=== PATIENT | male | born 1975 | race Caucasian/White ===

== ENCOUNTER → 2017-10-18 13:26 | Outpatient (REF) | payer SELFPAY | LOC: OM 13:26 | PROVIDERS: PCP Nurse Practitioner Family; Visit Provider Nurse Practitioner Family | DX: Z02.79 Encounter for issue of other medical certificate (principal) ==

== ENCOUNTER 2019-12-15 08:47 | Emergency (ER) | payer MEDICAID, SELFPAY ==
[2019-12-15 08:52] VITALS: BP 118/73; PULSE 67; RESP 18; TEMP 37.3; O2SAT 98
--- NOTE | 2019-12-15 09:12 | W.ED.GENAD ---
Discharge Plan Disposition Patient Disposition: HOME Condition: Improving Discharge Details Clinical Impression: Laceration of hand, left Primary Care Provider: Radha Manley ED Provider: Kennedy Vargas Home Meds and New Rx's Prescriptions: No Action No Known Home Meds RF: 0 Discharge Instructions Instructions: Laceration (ED) Additional Instructions: Please call your providers office on Tuesday to ensure that your tetanus has been updated within the last 5 years. Return in 7 to 9 days time for removal of stitches. Leave Band-Aid in place for 48 hours, then begin daily gentle cleanse with soap and water, pat dry and replace dressing. Return if you develop a fever, foul-smelling discharge from the wound, or any other acute concerns. Medical Decision Making 44-year-old right-handed male cut the base of his left thumb with the edge of a tape measure this morning. No motor or sensory dysfunction. Believes his tetanus is up-to-date. Patient was consented verbally, anesthetized, irrigated liberally and wound explored in a bloodless field without evidence of foreign body. Repaired with 3 interrupted 4-0 nylon sutures with good wound edge apposition.. Dressed at the bedside. Discussed with him home management. He is stable for discharge to home. HPI General Mode of arrival: ambulatory. Date/Time Provider Initiated Documentation: 12/15/19 08:49. Limitations to Documentation: no limitations. Information obtained by: patient. History of Present Illness 44 year old M presents to the emergency department with the chief complaint of Left hand laceration, described as mild, Quality is described as dull, and is localized to the left and upper extremity. Patient reports no radiation. Patient started experiencing this minute(s) and it has been constant. No relieving factors improve symptom(s), No exacerbating factors reported . Patient did receive the following treatments prior to arrival, none Related Data Home Medications Medication Instructions Recorded Confirmed Unknown [No Known Home Meds] 12/15/19 12/15/19 Allergies Allergy/AdvReac Type Severity Reaction Status Date / Time No Known Allergies Allergy Unverified 12/15/19 08:55 General Stated Complaint: Laceration ADIA: 4 Review of Systems Narrative: Believes tetanus is up-to-date. No other complaint. ON LICENSE OF [facility] Social History Smoking/Tobacco Use Status: Never Alcohol Intake: current Alcohol Intake frequency: holidays/special occasions only Substance use type: does not use Do you feel safe at home: Yes Do you feel safe in your relationship?: Yes Exam Narrative Exam Narrative: GEN: awake, alert, oriented 3. Pleasant, well groomed, interactive. HEAD: Normocephalic, atraumatic CHEST/RESP: No respiratory distress EXT: Full ROM, no edema, no rash. Left hand proximal volar thumb with 1 cm laceration through full depth of the dermis. Full range of motion, normal sensory exam. Neuro: Grossly normal neurologic exam, conversant, interactive. Psych: Speech fluent, thoughts congruent, affect normal Course Vital Signs Vital signs: Vital Signs Temperature 37.3 C 12/15/19 08:52 Pulse 67 12/15/19 08:52 Respiratory Rate 18 12/15/19 08:52 Blood Pressure 118/73 12/15/19 08:52 Pulse Oximetry 98 12/15/19 08:52 Temperature 37.3 C 12/15/19 08:52 Temperature Source Skin 12/15/19 08:52 Pulse 67 12/15/19 08:52 Respiratory Rate 18 12/15/19 08:52 Respiratory Effort Non-Labored 12/15/19 08:55 Blood Pressure 118/73 12/15/19 08:52 Blood Pressure Position Sitting 12/15/19 08:52 Pulse Oximetry 98 12/15/19 08:52 Oxygen Delivery Method Room Air 12/15/19 08:52 Oxygen Flow Rate 0 12/15/19 08:52 Pain Level 2 12/15/19 08:52 Procedures Laceration Laceration 1: Site: hand Side (If applicable): left Size (cm): 1 Description: linear Depth: simple, single layer Local Anesthetic: Lidocaine 1% Amount of anesthesia used (mL): 1 Pre-repair: wound explored, irrigated extensively and deep structures intact Skin layer closed with: nylon Size (cm): 4-0 Number of sutures: 3 Technique: simple, interrupted
== END 2019-12-15 09:25 | disposition home or self-care (01) ==
PROVIDERS: Emergency Provider Emergency Medicine; PCP Nurse Practitioner Family
DX: S61.012A Laceration without foreign body of left thumb without damage to nail, initial encounter (principal); W26.8XXA Contact with other sharp object(s), not elsewhere classified, initial encounter
CPT/HCPCS: 12001

== ENCOUNTER 2019-12-25 17:01 | Emergency (ER) | payer MEDICAID, SELFPAY ==
--- NOTE | 2019-12-25 17:05 | ED.GENADUL_ITS ---
Discharge Plan Disposition Patient Disposition: HOME Condition: Good Discharge Details Clinical Impression: Encounter for removal of sutures Primary Care Provider: Carri Morillo ED Provider: Camryn Beckman Home Meds and New Rx's Prescriptions: No Action No Known Home Meds RF: 0 Discharge Instructions Instructions: Stitches Removal (ED) Additional Instructions: Wound appears to be healing well. Please continue to monitor for side effect including redness, warmth, drainage, increased pain, fever/chills. If you develop this or other new/worsening symptoms please seek care urgently once again. Referrals: Carri Morillo [Primary Care Provider] - Discharge Data Discharge Date/Time-TO BE ENTERED AT DEPARTURE: 12/25/19 17:22 Medical Decision Making Patient is here for suture removal today. He has #3 simple interrupted stitches in the webspace of the left thumb. Patient be healing very well no evidence of infection. Stitches will be removed by nursing staff. Customary return precautions were discussed. Was discussed continued care of the wound and how to advance activities. All questions concerns were addressed using treatment as planned. HPI General Mode of arrival: ambulatory . Date/Time Provider Initiated Documentation: 12/25/19 17:05 . Limitations to Documentation: no limitations . Information obtained by: patient and RN notes reviewed . History of Present Illness 44 year old M presents to the emergency department with the chief complaint of suture removal, described as mild, with intensity rated at 1. and is localized to the left and upper extremity. Patient reports no radiation. Patient started experiencing this day(s) (10) and it has been now resolved. No relieving factors improve symptom(s), No exacerbating factors reported . Patient notes no other symptoms.. Patient did receive the following treatments prior to arrival, none Related Data Home Medications Medication Instructions Recorded Confirmed Unknown [No Known Home Meds] 12/15/19 12/15/19 Allergies Allergy/AdvReac Type Severity Reaction Status Date / Time No Known Allergies Allergy Unverified 12/15/19 08:55 General ADIA: 4 Review of Systems Constitutional Constitutional: Reports as per HPI, Denies chills, Denies fever(s) and Denies weakness Musculoskeletal Musculoskeletal: Reports as per HPI and Denies tingling Integumentary/Breasts Skin/Breast: Reports as per HPI Neurologic Neurologic: Denies sensory deficit, Denies tingling and Denies weakness PFS Social History Smoking/Tobacco Use Status: Never Alcohol Intake: current Alcohol Intake frequency: holidays/special occasions only Substance use type: does not use Do you feel safe at home: Yes Do you feel safe in your relationship?: Yes Exam Const General: cooperative, healthy appearing, comfortable, no acute distress and well developed Nutritional Appearance: average body habitus and well nourished Orientation: alert and awake Resp Effort & Inspection: normal respiratory effort, able to speak in complete sentences and no respiratory distress Cardio Rate: regular rate Rhythm: regular rhythm Skin Trauma: laceration (appears well healed with no evidence of infection) Neuro General: patient alert and patient awake Cognition: normal cognition Speech: speech normal Gait: normal gait Motor: muscle tone normal throughout Extrem Right upper extremity: normal to inspection, full ROM and normal capillary refill Psych Appearance: grossly normal and well kempt Mental Status: mental status grossly normal Speech and Movement: speech and movement normal
[2019-12-25 17:06] VITALS: BP 111/74; PULSE 71; RESP 17; TEMP 36.3
== END 2019-12-25 17:22 | disposition home or self-care (01) ==
LOC: ER 17:17
PROVIDERS: Emergency Provider Physician Assistant; PCP Nurse Practitioner Family
DX: S61.012D Laceration without foreign body of left thumb without damage to nail, subsequent encounter (principal); W26.8XXD Contact with other sharp object(s), not elsewhere classified, subsequent encounter; Z48.02 Encounter for removal of sutures

== ENCOUNTER 2021-05-12 17:59 | Outpatient (CLI) | payer MEDICAID, SELFPAY ==
--- NOTE | 2021-05-12 | DI.RAD_ITS ---
Exam(s) XR RIBS RT W PA LAT CHEST EXAM: XR RIBS RT W PA LAT CHEST CLINICAL HISTORY: CHEST WALL PAIN TECHNIQUE: COMPARISON: CR THORACIC SPINE from 01/17/2017 FINDINGS: PA and lateral chest and 4 additional views of the ribs were obtained. There is no focal rib abnorma lity identified. No pleural effusion or pneumothorax. The lungs are clear. Cardiac size is within normal limits. IMPRESSION: Negative examination of the chest and ribs. RADIATION DOSE DELIVERED: Total DLP
--- NOTE | 2021-05-12 18:49 | DI.VRAD_ITS ---
PROCEDURE INFORMATION: Exam: XR Right Ribs Exam date and time: 05/12/2021 18:14 Age: 45 years old Clinical indication: Other: Chest wall pain TECHNIQUE: Imaging protocol: XR Right ribs. Views: 2 views. COMPARISON: CR THORACIC SPINE 01/17/2017 16:05 FINDINGS: Bones/joints: No displaced rib fractures are seen with attention to the right-sided ribs. Soft tissues: Normal. IMPRESSION: No acute bony pathology. PROCEDURE INFORMATION: Exam: XR Chest Exam date and time: 05/12/2021 18:14 Age: 45 years old Clinical indication: Other: Chest wall pain TECHNIQUE: Imaging protocol: XR of the chest. Views: 2 views. COMPARISON: CR THORACIC SPINE 01/17/2017 16:05 FINDINGS: Lungs: No consolidation. Pleural spaces: No pleural effusion. No pneumothorax. Heart/Mediastinum: No cardiomegaly. Bones/joints: No acute fracture. IMPRESSION: No acute cardiopulmonary pathology. Dictated and Authenticated by: Devi English MD. Ordering:DONALDO Le MD
== END 2021-05-12 18:19 ==
PROVIDERS: PCP Nurse Practitioner Family; Visit Provider Nurse Practitioner Family
DX: R07.89 Other chest pain (principal)
CPT/HCPCS: 71046; 71100

== ENCOUNTER 2021-10-15 15:19 | Outpatient (REF) | payer MEDICAID, SELFPAY ==
[2021-10-15 15:36] LABS: Anion Gap 8.9 mmol/L (3-11); BUN 15 mg/dL (7-18); CO2 29.1 mmol/L (21.0-32.0); CREATININE 1.2 mg/dL (0.70-1.30); Calcium 9.8 mg/dL (8.5-10.1); Calculated LDL 130 mg/dL (<100); Chloride 105 mmol/L (98-107); Cholesterol 205 mg/dL (<200); Glucose 97 mg/dL (74-106); HDL Cholesterol 59 mg/dL (40-60); Potassium 4.8 mmol/L (3.5-5.1); Sodium 143 mmol/L (136-145); Triglyceride 81 mg/dL (<150)
== END 2021-10-15 15:20 | disposition home or self-care (01) ==
LOC: NCHCN 15:19
PROVIDERS: PCP Nurse Practitioner Family; Visit Provider Nurse Practitioner Family
DX: Z13.220 Encounter for screening for lipoid disorders (principal); Z00.00 Encounter for general adult medical examination without abnormal findings
CPT/HCPCS: 80048; 80061

== ENCOUNTER 2021-11-28 16:40 | Emergency (ER) | payer MEDICAID, SELFPAY ==
[2021-11-28 16:42] VITALS: BP 116/70; PULSE 83; RESP 18; TEMP 36.7; O2SAT 98
--- NOTE | 2021-11-28 16:45 | DI.RAD_ITS ---
Exam(s) XR CHEST 2V PA LATERAL EXAM: XR CHEST 2V PA LATERAL CLINICAL HISTORY: trauma rt sided TECHNIQUE: 2D digital imaging was performed. COMPARISON: CR,XR XR RIBS RT W PA LAT CHEST from 05/12/2021 FINDINGS: The heart is not enlarged. The lungs are clear and well expanded. No pleural effusion seen. Mediastin al contours appear intact. IMPRESSION: Normal chest. RADIATION DOSE DELIVERED: Total DLP
--- NOTE | 2021-11-28 16:52 | ED.GENADUL_ITS ---
Discharge Plan Disposition Patient Disposition: HOME Discharge Details Chief Complaint: Chest/Rib Clinical Impression: Rib contusion Primary Care Provider: Carri Morillo ED Provider: Isidro Ortiz Home Meds and New Rx's Prescriptions: New lidocaine [Lidoderm] 5 % adhesive patch,medicated 1 patch topical DAILY Qty: 15 0RF Rx Instructions: leave on most painful area for up to 12 hrs No Action ibuprofen 800 mg Tablet 800 mg PO Q8H acetaminophen [Acetaminophen Extra Strength] 500 mg Tablet 100 mg PO QID PRN cyclobenzaprine 10 mg tablet 10 mg PO HS PRNQty: 10 0RF Discharge Instructions Instructions: Rib Contusion (ED) Additional Instructions: Please use 1 lidocaine patch per day as instructed. You may take Tylenol 650 mg every 6 hours for the pain. You may also take ibuprofen 400 mg every 8 hours for the pain.. Bear in mind that ribs take a long time to heal and you will probably be feeling some pain for the next 4 to 6 weeks. Regarding the mild elevation of your liver function tests, please follow-up with your primary care doctor for repeat testing in approximately 4 to 6 weeks. Discharge Data Discharge Date/Time-TO BE ENTERED AT DEPARTURE: 11/28/21 20:02 Medical Decision Making Patient with isolated right-sided chest wall trauma. Chest x-ray does not reveal any abnormalities. I do not see any pneumothorax or any fractures. Patient diagnosed with contusion of the right chest wall. He will be treated with lidocaine patches Tylenol and Motrin. 7:[address] scan of the abdomen pelvis was read as negative from a intra abdominal pelvic perspective. He was diagnosed on CAT scan with fractures of the right 10th and 11th costal cartilages. This correlates clinically. These results were discussed with the patient. He is aware that he will be in pain for the next 4 to 6 weeks. He will be sent home with some lidocaine patches for the next week. He will be taking Tylenol Motrin for the pain. From the elevation of the LFTs perspective, he was counseled on follow-up with his PCP for repeat testing in 4 to 6 weeks. HPI General Date/Time Provider Initiated Documentation: 11/28/21 16:52 . HPI Narrative: 38-year-old gentleman is coming from this referral letter with the letter sta rted. He was approximately 4 to 6 feet from the ground fell flat and he fell onto the landing. He believes that he hit the right side of his chest on the ladder because he is having right anterior chest wall pain. Pain is worse with movement and deep breathing. If he is sitting at rest he is not short of breath and has a mild discomfort. No head trauma no neck trauma. No abdominal pain. No back pain. No extremity pain. No skin lesions Acute isolated injury to the right side of his chest. This occurred 3 hours ago. Has not taken anything for the pain Related Data Home Medications Medication Instructions Recorded Confirmed lidocaine 5 % topical patch 1 patch topical DAILY #15 ea 11/29/21 12/06/21 (Lidoderm) acetaminophen 500 mg tablet 100 mg PO QID PRN 12/06/21 12/06/21 (Acetaminophen Extra Strength) cyclobenzaprine 10 mg tablet 10 mg PO HS PRN #10 tabs 12/06/21 ibuprofen 800 mg tablet 800 mg PO Q8H 12/06/21 12/06/21 Previous Rx's Medication Instructions Recorded lidocaine 5 % topical patch 1 patch topical DAILY #15 ea 11/29/21 (Lidoderm) cyclobenzaprine 10 mg tablet 10 mg PO HS PRN #10 tabs 12/06/21 Allergies Allergy/AdvReac Type Severity Reaction Status Date / Time No Known Allergies Allergy Unverified 12/06/21 17:58 General Stated Complaint: Chest/Rib ADIA: 3 Review of Systems Narrative: Constitutional is been negative for fever chills, negative for malaise, negative for fatigue. Eyes: No visual changes, no tearing ENT: negative Cardiovascular no chest pain, no shortness of breath with exertion, no palpitations, no lightheadedness Respiratory: No shortness of breath, no cough GI: No abdominal pain, no diarrhea, no nausea, no vomiting : No dysuria, no frequency, no hematuria MSK: No myalgias, no arthralgias, see HPI Skin: No rash Neurological: No headaches, no focal weakness, no paresthesias, no dizziness Psych: No anxiety Endo: No weight gain no weight loss Hematology/lymph: no easy bleeding, not on blood thinners PFSH All Active Problems (Updated 12/29/21 @ 00:09 by GIRMA LEWIS) Chest wall pain (Acute) Medical History (Updated 12/29/21 @ 00:09 by GIRMA LEWIS) Chronic low back pain Left knee pain Surgical History (Updated 12/25/21 @ 12:36 by Renay Sanders RN) History of vasectomy Social History Smoking/Tobacco Use Status: Never Smoking risk assessment performed?: Yes Alcohol Intake: current Alcohol Intake frequency: holidays/special occasions only Drug use: Never Substance use type: does not use Do you feel safe at home: Yes Do you feel safe in your relationship?: Yes Exam Narrative Exam Narrative: General: A,A Ox3, Calm, no apparent distress, well developed, pleasant and cooperative Head Size/Shape: normocephalic, atraumatic Eyes Pupils: PERRLA Extraocular Mobility: intact and symmetrical Conjunctiva: non-injected, anicteric, no discharge Ears, Nose, Throat Nares: patent bilaterally Oral Cavity: moist Neck: no masses, no crepitus, negative NEXUS Respiratory Respiratory Effort: no dyspnea Auscultation: clear to auscultation bilaterally, normal breath sounds, no wheezing, no rales/crackles , positive splinting, he does have tenderness to palpation pf the rt anterior chest wall. no crepitus Cardiovascular Heart Auscultation: regular rate and rhythm, normal S1, normal S2, no murmurs, no rubs, no gallops, Pulse Quality: +2 equal bilaterally, location(s) radial Abdomen Inspection and Palpation: soft, non-tender, non-distended, no hepatosplenomegaly Musculoskeletal System Joints, Bones, and Muscles: no deformities Extremities: warm and well-perfused, no cyanosis, capillary refill <2 seconds Skin Skin Inspection: no rash, no lesions, no bruising Neurological Motor: normal tone, normal strength, moving all extremities equally Psychiatric: good insight, good judgement, normal mood and affect Course 1804 patient chest x-ray was read as negative by me. Do not appreciate any contusion of the lung nor do I appreciate any rib fracture. Unfortunately his LFTs returned mildly elevated in the setting of trauma and the person that does not drink and does not take any medication that would explain the elevation of LFTs, a CAT scan of the abdomen pelvis with contrast was ordered Vital Signs Vital signs: Vital Signs Temperature 36.7 C 11/28/21 16:42 Pulse 83 11/28/21 16:42 Respiratory Rate 18 11/28/21 16:42 Blood Pressure 116/70 11/28/21 16:42 Pulse Oximetry 98 11/28/21 16:42 Temperature 36.7 C 11/28/21 16:42 Pulse 83 11/28/21 16:42 Respiratory Rate 18 11/28/21 16:42 Respiratory Effort Non-Labored 11/28/21 16:47 Blood Pressure 116/70 11/28/21 16:42 Blood Pressure Position Sitting 11/28/21 16:42 Pulse Oximetry 98 11/28/21 16:42 Oxygen Delivery Method Room Air 11/28/21 16:42 Oxygen Flow Rate 0 11/28/21 16:42 Pain Level 6 11/28/21 16:42
[2021-11-28 17:15] LABS: Abs Immature Grans 0.02 10^3/uL (0.0-0.06); Absolute Basophil Count 0.05 10^3/uL (0.0-0.2); Absolute Eosinophil Count 0.06 10^3/uL (0.0-0.7); Absolute Lymphocyte Count 1.31 10^3/uL (1.2-3.4); Absolute Monocyte Count 0.62 10^3/uL (0.1-0.8); Absolute Neutrophil Count 7.28 10^3/uL (1.2-6.7); Basophils % 0.5; Eosinophils % 0.6; HGB 14.9 g/dL (13.5-17.5); Immature Grans % 0.2; MCHC 34.7 % (32.0-36.0); MCV 90 fL (80-95); MPV 11.5 fL (8.0-11.0); Monocytes % 6.6; Neutrophils % 78.1; Platelet Count 148 10^3/uL (130-400); RDW 12.2 % (11.8-14.1); RDW-SD 40.1 fL; WBC 9.34 10^3/uL (4.4-10.8)
--- NOTE | 2021-11-28 17:58 | DI.VRAD_ITS ---
PROCEDURE INFORMATION: Exam: XR Chest Exam date and time: 11/28/2021 5:40 PM Age: 46 years old Clinical indication: Injury or trauma; Fall; Blunt trauma (contusions or hematomas); Patient HX: Trauma RT sided TECHNIQUE: Imaging protocol: Radiologic exam of the chest. Views: 2 views. COMPARISON: CR XR RIBS RT W PA LAT CHEST 05/12/2021 6:08 PM FINDINGS: Lungs: Mild chronic interstitial prominence. No consolidation. Pleural spaces: No pleural effusion. No pneumothorax. Heart/Mediastinum: Mildly tortuous aorta. No cardiomegaly. Bones/joints: Unremarkable. IMPRESSION: No acute findings. Dictated and Authenticated by: Dani Lerma MD. Ordering:AMBIKA Felix MD
[2021-11-28 17:59] LABS: ALT 90 U/L (16-63); AST 55 U/L (15-37); Albumin 4.2 g/dL (3.4-5.0); Alkaline Phosphatase 103 U/L (46-116); Anion Gap 9.8 mmol/L (3-11); BUN 12 mg/dL (7-18); Bilirubin, Total 0.3 mg/dL (0.2-1.0); CO2 26.2 mmol/L (21.0-32.0); CREATININE 1.1 mg/dL (0.70-1.30); Calcium 9.2 mg/dL (8.5-10.1); Chloride 105 mmol/L (98-107); Estimated GFR 82.81 (mL/min/1.73m2); Glucose 109 mg/dL (74-106); Potassium 4.1 mmol/L (3.5-5.1); Sodium 141 mmol/L (136-145); Total Protein 7.2 g/dL (6.4-8.2)
--- NOTE | 2021-11-28 18:00 | DI.CT_ITS ---
Exam(s) CT ABDOMEN PELVIS W EXAM: CT ABDOMEN PELVIS W CLINICAL HISTORY: trauma rt side chest wall, mild elevation LFTs TECHNIQUE: COMPARISON: No exams were available for comparison FINDINGS: CT examination of the abdomen and pelvis was performed with bolus infusion of 100 cc of Omnipaque 350 . Images obtained through the lung bases are unremarkable. There are probable nondisplaced fractures costal cartilages 10 and 11 on the right. The liver appears normal with no evidence of a focal mass. Spleen is unremarkable in appearance.. Gallbladder and bile ducts are unremarkable. Pancreas is unremarkable in appearance. Adrenals appear normal bilaterally. Kidneys appear normal with no evidence of renal mass, hydronephrosis, or nephrolithiasis. Unremarkab le bladder. There is no evidence of abdominal or pelvic adenopathy. Abdominal aorta is of normal diameter and no abnormality is seen involving major visceral branches.. Appendix is normal. No evidence diverticulitis or bowel obstruction. No significant abdominal wall hernia seen. Impression: A probable nondisplaced fractures costal cartilage right 10th and 11th ribs, please correlate clinica lly. Otherwise negative CT examination of the abdomen and pelvis. RADIATION DOSE DELIVERED: 1,086.3mGy.cm Total DLP 1,086.3mGy.cm Total DLP !Error CTDIvol DATA REPOSITORY: All CT scans at this facility are submitted to the National Radiology Data Registry (NRDR) Dose Index Registry (DIR) with the [employer] ([employer]). RADIATION OPTIMIZATION: All CT scans at this facility use at least one of these dose optimization te chniques: automated exposure control; mA and/or kV adjustment per patient size (includes targeted exa ms where dose is matched to clinical indication); or iterative reconstruction.
[2021-11-28] MEDS: Omnipaque 350 MG/ML 100 ML BTL IJ (19:13)
[2021-11-28] MEDS: Normal Saline 1,000 ML 1000 ML IV (19:20)
[2021-11-28] MEDS: Ibuprofen 400 MG TAB PO (19:20)
[2021-11-28] MEDS: Lidocaine 5% Patch 1 PATCH TP (19:21)
--- NOTE | 2021-11-28 19:34 | DI.VRAD_ITS ---
PROCEDURE INFORMATION: Exam: CT Abdomen And Pelvis With Contrast Exam date and time: 11/28/2021 7:12 PM Age: 46 years old Clinical indication: Injury or trauma; Fall; Blunt; Ruq; Patient HX: Trauma RT side chest wall, mild elevation lfts TECHNIQUE: Imaging protocol: Computed tomography of the abdomen and pelvis with contrast. COMPARISON: CR XR CHEST 2V PA LATERAL 11/28/2021 5:40 PM FINDINGS: Question fractures of the right 10th and 11th costal cartilages Liver: Fatty infiltration. No mass. Gallbladder and bile ducts: Normal. No calcified stones. No ductal dilation. Pancreas: Normal. No ductal dilation. Spleen: Normal. No splenomegaly. Adrenal glands: Normal. No mass. Kidneys and ureters: Normal. No hydronephrosis. Stomach and bowel: Unremarkable. No obstruction. No mucosal thickening. Appendix: No evidence of appendicitis. Intraperitoneal space: Unremarkable. No free air. No significant fluid collection. Vasculature: Unremarkable. No abdominal aortic aneurysm. Lymph nodes: Unremarkable. No enlarged lymph nodes. Urinary bladder: Unremarkable as visualized. Reproductive: Unremarkable as visualized. Bones/joints: Unremarkable. No acute fracture. Soft tissues: Unremarkable. IMPRESSION: Question fractures of the right 10th and 11th costal cartilages. Correlate clinically No solid organ injury observed Dictated and Authenticated by: Dani Lerma MD. Ordering:AMBIKA Felix MD
--- NOTE | 2021-11-29 13:30 | NUR.NOTE ---
called about getting prescription transferred to a pharmacy open today. call given to Rosa Singh Note:
== END 2021-11-28 20:02 | disposition home or self-care (01) ==
PROVIDERS: Emergency Provider Emergency Medicine; PCP Nurse Practitioner Family
DX: S22.41XA Multiple fractures of ribs, right side, initial encounter for closed fracture (principal); R74.8 Abnormal levels of other serum enzymes; W17.89XA Other fall from one level to another, initial encounter
CPT/HCPCS: 80053; 96360; 99285; 71046; 74177; 85025; 99284; J3490

== ENCOUNTER 2021-12-06 16:25 | Emergency (ER) | payer MEDICAID, SELFPAY ==
[2021-12-06 16:38] VITALS: BP 118/69; PULSE 78; RESP 18; TEMP 36.8; O2SAT 100
--- NOTE | 2021-12-06 18:15 | DI.RAD_ITS ---
Exam(s) XR RIBS RT W PA LAT CHEST CLINICAL HISTORY fall 1 week ago, sneeze today, worse pain. COMPARISON: CR,XR XR CHEST 2V PA LATERAL from 11/28/2021 TECHNIQUE:: PA and lateral views of the chest and four views of the right ribs were performed. FINDINGS: LUNGS: Clear. No pleural abnormality seen. HEART: Normal. MEDIASTINUM: Normal. BONES: No displaced rib fracture is seen. No compression fractures are seen in the thoracic spine. No bony destructive lesion is seen. OTHER FINDINGS: None. IMPRESSION: 1. Unremarkable radiographic appearance of the left ribs. 2. No acute pulmonary findings.
[2021-12-06 19:00] VITALS: BP 118/74; PULSE 69; RESP 22; O2SAT 99
--- NOTE | 2021-12-06 19:26 | W.ED.GENAD ---
Discharge Plan Disposition Patient Disposition: HOME Condition: Stable Discharge Details Clinical Impression: Rib contusion Primary Care Provider: Carri Morillo ED Provider: Hua Ceballos Home Meds and New Rx's Prescriptions: New cyclobenzaprine 10 mg tablet 10 mg PO HS PRNQty: 10 0RF Continued lidocaine [Lidoderm] 5 % adhesive patch,medicated 1 patch topical DAILY Qty: 15 0RF Rx Instructions: leave on most painful area for up to 12 hrs ibuprofen 800 mg Tablet 800 mg PO Q8H acetaminophen [Acetaminophen Extra Strength] 500 mg Tablet 100 mg PO QID PRN Discharge Instructions Instructions: Rib Contusion (ED) Additional Instructions: X-ray is unremarkable. Take-home pack of Flexeril and Roxicet provided, please take as directed, as we discussed these medications may cause drowsiness. Cool and/or warm compresses every 2 hours for 20 minutes. Gentle stretching as tolerated. Please watch for new or worsening symptoms and return to the ER for any concerns. A prescription of Flexeril was also provided that you may fill tomorrow. You may also take meid-kly-vrbkzkr anti-inflammatory medication and a total of up to 4 g of Tylenol, remember that Roxicet has a component of Tylenol as well. Lastly, please contact your primary care provider tomorrow to discuss your ER visit need for outpatient reevaluation. Discharge Data Discharge Date/Time-TO BE ENTERED AT DEPARTURE: 12/06/21 20:34 Medical Decision Making This is a 46-year-old gentleman who was seen in the ER last week after a fall from a ladder, approximately 6 feet. He had plain film of his chest and CT imaging of his abdomen and pelvis which showed probable nondisplaced fractures costal cartilage right 10th and 11th ribs. Patient states that he has been using skau-khp-bawmwlz Tylenol and a Lidoderm patch since that time and has had ongoing discomfort with movement, but today he sneezed and felt a sudden sharp pain in the same location. He states this feels as though he tore more cartilage and at times is having spasms in the muscle surrounding the pain. There is a distinct correlation of pain with sneezing. He denies any other chest pain, shortness of breath, cough, fever, back pain, abdominal pain, nausea, vomiting. Patient is concerned that he may have injured himself worse. I reviewed his records from his previous visit. We discussed that his chest x-ray was unremarkable and that the imaging seemed to show injury in his costal cartilage. This may be very difficult to assess on repeat chest x-ray. Patient wonders if his ribs could be displaced, dislocated, etc. We discussed that the study of choice is likely CT imaging. We discussed risks and benefits of CT imaging and radiation. At this time patient would like to avoid any additional radiation. He understands that x-ray may be limited but at least this way with an x-ray that we could see if there is anything grossly abnormal. Patient did drive himself to the ER so I cannot provide analgesia that may cause drowsiness. We discussed take-home pack of muscle relaxer and hydrocodone as well as a prescription for muscle relaxer to leaf size picker tomorrow. Chest x-ray read by radiology as unremarkable. Discussed chest x-ray findings with patient. Again he understands the limitations of this test but does not want to pursue additional testing. We discussed that chest wall, rib injuries, can take weeks if not months to completely heal. He will continue using Lidoderm patches as well as ofud-llk-kduweaf medication that he has been using and I will provide the prescription as stated above. Standard discharge and return precautions were provided. Patient understands, is agreeable to this plan, and has no additional questions or concerns upon discharge. This documentation was generated using [employer] system, please disregard any oddities of phrase or misspellings. Medical Records Medical records reviewed: Yes I reviewed the patient's medical records. Imaging Data Radiologic Study: Attestation: I personally reviewed and interpreted this imaging study as follows: Imaging: X-Ray Radiologist's impression: PROCEDURE INFORMATION: Exam: XR Right Ribs Exam date and time: 12/06/2021 6:32 PM Age: 46 years old Clinical indication: Right-sided; Chest wall pain TECHNIQUE: Imaging protocol: Radiologic exam of the Right ribs. Views: 2 views. COMPARISON: CR XR RIBS RT W PA LAT CHEST 05/12/2021 6:08 PM FINDINGS: Bones/joints: No rib fractures observed. Twelve pairs of ribs are observed. No abnormal widening of intercostal spaces observed on the right. Moderate costochondral calcifications are noted. Soft tissues: No abnormalities. IMPRESSION: No evidence of right rib fracture. PROCEDURE INFORMATION: Exam: XR Chest Exam date and time: 12/06/2021 6:32 PM Age: 46 years old Clinical indication: Right-sided; Chest wall pain TECHNIQUE: Imaging protocol: Radiologic exam of the chest. Views: 2 views.COMPARISON: CR XR CHEST 2V PA LATERAL 11/28/2021 5:40 PM FINDINGS: Lungs: Unremarkable. No consolidation. Pulmonary vessels are not congested. Pleural spaces: Unremarkable. No pleural effusion. No pneumothorax. Heart/Mediastinum: Unremarkable. No cardiomegaly. Bones/joints: Mild thoracic dextroscoliosis. Soft tissues: No abnormal chest wall air. IMPRESSION: No acute cardiopulmonary abnormality. HPI General Mode of arrival: ambulatory. Date/Time Provider Initiated Documentation: 12/06/21 16:31. Limitations to Documentation: no limitations. Information obtained by: patient. History of Present Illness 46 year old M presents to the emergency department with the chief complaint of R chest wall pain, described as severe, with intensity rated at 8. Quality is described as aching, and is localized to the chest and right. Patient reports no radiation. Patient started experiencing this day(s) (8, original fall) and it has been constant. Immobilization improves symptom(s), and Movement improves symptom(s), Movement worsens symptoms . Patient notes no other symptoms.. Patient did receive the following treatments prior to arrival, other (tylenol) Related Data Home Medications Medication Instructions Recorded Confirmed lidocaine 5 % topical patch 1 patch topical DAILY #15 ea 11/29/21 12/06/21 (Lidoderm) acetaminophen 500 mg tablet 100 mg PO QID PRN 12/06/21 12/06/21 (Acetaminophen Extra Strength) cyclobenzaprine 10 mg tablet 10 mg PO HS PRN #10 tabs 12/06/21 ibuprofen 800 mg tablet 800 mg PO Q8H 12/06/21 12/06/21 Previous Rx's Medication Instructions Recorded lidocaine 5 % topical patch 1 patch topical DAILY #15 ea 11/29/21 (Lidoderm) cyclobenzaprine 10 mg tablet 10 mg PO HS PRN #10 tabs 12/06/21 Allergies Allergy/AdvReac Type Severity Reaction Status Date / Time No Known Allergies Allergy Unverified 12/06/21 17:58 General Stated Complaint: Orthopedic ADIA: 3 Review of Systems Constitutional Constitutional: Denies headache(s) and Denies weakness ENT Ears, Nose, Mouth, and Throat: Denies headache(s) and Denies neck pain Cardiovascular Cardiovascular: Reports chest pain (Right chest wall-ribs) and Denies dyspnea Respiratory Respiratory: Denies cough and Denies dyspnea Gastrointestinal Gastrointestinal: Denies abdominal pain, Denies nausea and Denies vomiting Genitourinary Genitourinary: Denies dysuria Musculoskeletal Musculoskeletal: Denies back pain, Denies neck pain, Denies numbness and Denies tingling Integumentary/Breasts Skin/Breast: Denies rash Neurologic Neurologic: Denies headache(s), Denies numbness, Denies tingling and Denies weakness Hematologic/Lymphatic Hematologic/Lymphatic: Denies easy bleeding and Denies easy bruising PFSH All Active Problems Rib contusion (Acute) Medical History Chronic low back pain Left knee pain Social History Smoking/Tobacco Use Status: Never Smoking risk assessment performed?: Yes Alcohol Intake: current Alcohol Intake frequency: holidays/special occasions only Drug use: Never Substance use type: does not use Do you feel safe at home: Yes Do you feel safe in your relationship?: Yes Exam Const General: cooperative, healthy appearing, comfortable and no acute distress Orientation: alert and awake HENMT Head: normal to inspection, normocephalic and atraumatic Face and sinus: normal facial exam Mouth: moist mucous membranes Eyes General: appearance normal, both eyes and all related structures Conjunctivae: conjunctivae normal Neck Neck: normal visual inspection, full ROM, trachea midline, supple and nontender Chest Chest: normal inspection of the chest Other: Right sided inferior-lateral discomfort, no crepitus. Skin intact. Resp Effort & Inspection: normal respiratory effort and able to speak in complete sentences Auscultation: clear to auscultation bilaterally Cardio Rate: regular rate Rhythm: regular rhythm GI Inspection: normal to inspection Palpation: soft, not firm, no guarding, no pulsatile masses and nontender Auscultation: normal bowel sounds Back/Spine/Pelvis Back: no CVA tenderness and No back tenderness Skin General skin exam: no rashes or lesions noted Neuro General: patient alert, patient awake, moves all extremities and no focal motor deficits Cognition: normal cognition Speech: speech normal Gait: normal gait Motor: muscle tone normal throughout Sensory Exam: no sensory deficits noted Extrem General: full ROM Psych Appearance: grossly normal Mental Status: mental status grossly normal Course Vital Signs Vital signs: Vital Signs Temperature 36.8 C 12/06/21 16:38 Pulse 78 12/06/21 16:38 Respiratory Rate 18 12/06/21 16:38 Blood Pressure 118/69 12/06/21 16:38 Pulse Oximetry 100 12/06/21 16:38 Temperature 36.8 C 12/06/21 16:38 Temperature Source Tympanic 12/06/21 16:38 Pulse 69 12/06/21 19:00 Respiratory Rate 22 12/06/21 19:00 Respiratory Effort Non-Labored 12/06/21 17:55 Respiratory Depth Normal 12/06/21 17:55 Respiratory Pattern Normal 12/06/21 17:55 Blood Pressure 118/74 12/06/21 19:00 Pulse Oximetry 99 12/06/21 19:00 Oxygen Delivery Method Room Air 12/06/21 19:00 Oxygen Flow Rate 0 12/06/21 19:00 Pain Level 4 12/06/21 19:00
[2021-12-06 20:06] VITALS: BP 119/58; PULSE 67; RESP 19; TEMP 36.6; O2SAT 99
[2021-12-06] MEDS: Cyclobenzaprine 10 MG TAB, 3 TABS/BTL PO (20:11)
== END 2021-12-06 20:34 | disposition home or self-care (01) ==
PROVIDERS: Emergency Provider Physician Assistant; PCP Nurse Practitioner Family
DX: S20.211A Contusion of right front wall of thorax, initial encounter (principal); W11.XXXA Fall on and from ladder, initial encounter
CPT/HCPCS: 99283; 71046; 71100; 99284

== ENCOUNTER 2022-07-16 13:51 | Emergency (ER) | payer MEDICAID, SELFPAY ==
[2022-07-16 13:56] VITALS: BP 120/74; PULSE 86; RESP 18; O2SAT 99
--- NOTE | 2022-07-16 13:59 | W.ED.GENAD ---
Discharge Plan Disposition Patient Disposition: Home Discharge Details Clinical Impression: Pain, dental Primary Care Provider: Carri Morillo ED Provider: Isidro Ortiz Home Meds and New Rx's Prescriptions: New penicillin V potassium 500 mg tablet 500 mg PO QID Qty: 30 0RF No Action lidocaine [Lidoderm] 5 % adhesive patch,medicated 1 patch topical DAILY Qty: 15 0RF Rx Instructions: leave on most painful area for up to 12 hrs ibuprofen 800 mg Tablet 800 mg PO Q8H acetaminophen [Acetaminophen Extra Strength] 500 mg Tablet 100 mg PO QID PRN cyclobenzaprine 10 mg tablet 10 mg PO HS PRNQty: 10 0RF Discharge Instructions Instructions: Toothache (ED) Additional Instructions: Please take the antibiotic as prescribed Medical Decision Making Clinical presentation consistent with early tooth abscess. Patient will be treated with penicillin. He will continue taking [id number] Tylenol and Motrin for the pain. HPI General Date/Time Provider Initiated Documentation: 07/16/22 13:59. HPI Narrative: 2 weeks of left lower dental pain that worsened yesterday. States he had a hard time sleeping. He actually reached out to his dentist 2 days ago and was told he could not be seen until next week. Has been taking the dosage of Tylenol and Motrin which takes the edge off but has not made pain-free. He also has noticed some mild swelling of the left lower jaw. No fevers no chills. Most probably swallowing. Related Data Home Medications Medication Instructions Recorded Confirmed lidocaine 5 % topical patch 1 patch topical DAILY #15 ea 11/29/21 07/16/22 (Lidoderm) acetaminophen 500 mg tablet 100 mg PO QID PRN 12/06/21 07/16/22 (Acetaminophen Extra Strength) cyclobenzaprine 10 mg tablet 10 mg PO HS PRN #10 tabs 12/06/21 07/16/22 ibuprofen 800 mg tablet 800 mg PO Q8H 12/06/21 07/16/22 penicillin V potassium 500 mg 500 mg PO QID #30 tabs 07/16/22 tablet Previous Rx's Medication Instructions Recorded lidocaine 5 % topical patch 1 patch topical DAILY #15 ea 11/29/21 (Lidoderm) cyclobenzaprine 10 mg tablet 10 mg PO HS PRN #10 tabs 12/06/21 penicillin V potassium 500 mg 500 mg PO QID #30 tabs 07/16/22 tablet Allergies Allergy/AdvReac Type Severity Reaction Status Date / Time No Known Allergies Allergy Unverified 12/06/21 17:58 General Stated Complaint: DentalOral ADIA: 4 Review of Systems Narrative: Constitutional negative, HEENT see HPI, respiratory negative MSK negative, skin negative, lymph negative PFSH All Active Problems (Updated 07/16/22 @ 14:05 by Isidro Ortiz MD) Pain, dental (Acute) Chest wall pain (Acute) Medical History (Updated 07/16/22 @ 14:05 by Isidro Ortiz MD) Chronic low back pain Left knee pain Surgical History (Updated 12/25/21 @ 12:36 by Renay Sanders RN) History of vasectomy Social History Smoking/Tobacco Use Status: Never Smoking risk assessment performed?: Yes Alcohol Intake: current Alcohol Intake frequency: holidays/special occasions only Drug use: Never Substance use type: does not use Do you feel safe at home: Yes Do you feel safe in your relationship?: Yes Exam Narrative Exam Narrative: Awake alert [place] x3 calm no acute distress, normocephalic atraumatic Anicteric MMM There is discrete swelling of the left lower mandible posteriorly. Examination of dma-hglv-clw cavity does not reveal any broken tooth. The last molar on the left lower is mildly tender. Neck is supple Work of breathing normal Normal cap refill Course Vital Signs Vital signs: Vital Signs Pulse 86 07/16/22 13:56 Respiratory Rate 18 07/16/22 13:56 Blood Pressure 120/74 07/16/22 13:56 Pulse Oximetry 99 07/16/22 13:56 Temperature Source Oral 07/16/22 13:56 Pulse 86 07/16/22 13:56 Respiratory Rate 18 07/16/22 13:56 Blood Pressure 120/74 07/16/22 13:56 Blood Pressure Position Sitting 07/16/22 13:56 Pulse Oximetry 99 07/16/22 13:56 Oxygen Delivery Method Room Air 07/16/22 13:56 Oxygen Flow Rate 0 07/16/22 13:56 Pain Level 5 07/16/22 13:56
[2022-07-16] MEDS: Ibuprofen 600 MG TAB PO (14:09)
[2022-07-16] MEDS: Acetaminophen 500 MG TAB 1000 MG PO (14:09)
[2022-07-16] MEDS: Penicillin V POTASSIUM 500 MG TAB 2000 MG PO (14:10)
== END 2022-07-16 14:19 | disposition home or self-care (01) ==
PROVIDERS: Emergency Provider Emergency Medicine; PCP Nurse Practitioner Family
DX: K08.89 Other specified disorders of teeth and supporting structures (principal)
CPT/HCPCS: 99283; 99284

== ENCOUNTER 2022-08-12 11:59 | Day surgery (SDC) | payer MEDICAID, SELFPAY ==
--- NOTE | 2022-08-12 10:58 | W.PM.DSUDISC ---
Date of service: 08/12/22 Time of Service: 10:58 Discharge Plan Disposition Patient Disposition: Home Condition: Good Discharge Details Reason For Visit: Screening colonoscopy Attending Provider: Michael Corbin Primary Care Provider: Carri Morillo Home Meds and New Rx's Prescriptions: Continued ibuprofen 800 mg Tablet 800 mg PO Q8H acetaminophen [Acetaminophen Extra Strength] 500 mg Tablet 100 mg PO QID PRN Discontinued polyethylene glycol 3350 17 gram/dose powder 238 g PO ONCE Qty: 238 0RF Rx Instructions: take per colonoscopy instructions bisacodyl [Dulcolax (bisacodyl)] 5 mg tablet,delayed release (DR/EC) 5 mg PO ONCE Qty: 4 0RF Rx Instructions: take per colonoscopy instructions Discharge Instructions Additional Instructions: Yves, we were able to complete your colonoscopy today without any difficulty. You do have some very mild internal hemorrhoids. I have attached some general information here regarding hemorrhoids, and basic approaches to caring for them. Otherwise, your colonoscopy was negative. I saw no evidence of tumors or polyps. Like we talked about before the procedure, based on your personal and family history, I would recommend considering another screening colonoscopy every 10 years. 1. If tolerated, consume a soft, low fiber diet for 1-2 days. [address] Do not drive, drink alcohol, operate machinery, make critical decisions, or do activities that require coordination or balance for 24 hours. 3. Because air was put into your colon during the procedure, expelling air from your rectum (passing gas or farting) is normal. 4. You may not have a bowel movement for 1-3 days because of the colonoscopy prep. This is normal. 5. Go directly to the emergency room if you notice any of the following: Develop chills (warm to touch), or if you have a thermometer and your temperature is above 101 Difficulty breathing or difficultly swallowing Persistent vomiting Severe abdominal pain, other than gas cramps Severe chest pain Black, tarry stools Any bleeding ? exceeding one tablespoon 6. Call your physician if the site where your intravenous was started becomes red, swollen, painful, and warm to touch. 7. Your physician has reviewed your pre-procedure medications. Please continue to take those medications as previously ordered. You will be given specific information/education regarding any changes to your medications before leaving. Activity:: Activity as Tolerated Activity:: Activity as Tolerated Diet:: As Tolerated Discharge Orders Discharge Orders: Discharge Order (Routine); Ordered 08/12/22 Ordered By: Michael Corbin DS: Diagnosis Discharge Diagnosis (1) Colon cancer screening: Status: Acute Asessment and Plan: Negative screening colonoscopy, recommend follow-up in 10 years
--- NOTE | 2022-08-12 11:02 | W.COLOREPORT ---
Date of service: 08/12/22 Time of Service: 13:48 Colonoscopy Report Date of procedure: 08/12/22 Pre-op diagnosis general: Screening colonoscopy Procedure: Colonoscopy Surgeon: Michael Corbin Anesthesia Type: General:No Airway Estimated blood loss (mL): 0 Pathology: none sent Complications: None Disposition: same day Indications: Yves is a 46-year-old male who is here for screening colonoscopy Prep: Miralax/Dulcolax Procedure Start Time: 13:12 Procedure End Time: 13:37 Retraction Time: 16 Findings: Negative screening colonoscopy Procedure Description: After the induction of monitored anesthetic care, and with the patient in left lateral decubitus position, I began by performing an external anorectal exam.? Perineum and skin were normal, as was the anal verge.? There was no evidence of external hemorrhoids.? Next, I performed a digital rectal exam.? I did not appreciate any abnormal findings.? Next, I advanced a colonoscope into the rectal vault.? I performed retroflexion.? There is grade 1 internal hemorrhoids.? Using insufflation, I then advanced the colonoscope beyond the rectal folds and into the sigmoid colon before advancing towards the cecum.? The quality of the prep was adequate.? The scope was noted to be in the cecum by identification of the ileocecal valve and appendiceal orifice.? I then began withdrawing the colonoscope using repeated irrigation as necessary for full evaluation of the colonic mucosa. ?Once the scope was withdrawn to the level of the rectum, great care was taken to examine portions of the rectal folds.? I did not see any signs of tumors or polyps along the length of the large intestine. Finally, the scope was withdrawn and the patient was brought to the same-day surgery recovery unit as the anesthetic wore off. ?The findings and instructions were shared with the patient prior to discharge.
[2022-08-12 12:00] VITALS: BP 109/76; PULSE 59; RESP 18; TEMP 36.6; O2SAT 99
[2022-08-12 12:27] VITALS: BMI 30.1
--- NOTE | 2022-08-12 12:27 | W.ANESPRE ---
General Info Date of Service Date Performed: 08/12/22 Height: 5 ft 10 in Weight: 95.254 kg Body Mass Index (BMI): 30.1 Surgical Procedure: Operation Date: 08/12/22 13:05 Proposed Procedure Side Surgeon molly Corbin MD Meds Allergies and Home Medications Allergies Allergy/AdvReac Type Severity Reaction Status Date / Time No Known Allergies Allergy Unverified 08/12/22 12:15 Home Medication Medication Instructions Recorded acetaminophen 500 mg tablet 100 mg PO QID PRN 12/06/21 (Acetaminophen Extra Strength) ibuprofen 800 mg tablet 800 mg PO Q8H 12/06/21 Current Visit Medications: Current Medications Generic Name Dose Route Start Last Admin Trade Name Freq PRN Reason Stop Dose Admin Ringer's Solution 1,000 mls @ 80 mls/hr 08/12/22 06:00 IV 08/12/22 23:59 INFUSION GLORY IV Miscellaneous Supplies 1 each 08/12/22 06:00 Iv Access IV 08/12/22 23:59 DIRECTED GLORY Ondansetron HCl 4 mg 08/12/22 11:05 Ondansetron 4 Mg/2 Ml Vial IVP 09/11/22 11:04 Q4H PRN PRN Nausea / Vomiting Sodium Chloride 0 ml 08/12/22 06:00 Normal Saline Flush 10 Ml Syr IV 08/12/22 23:59 PRN PRN Sodium Chloride 0 ml 08/12/22 06:00 Normal Saline 10 Ml Vial IJ 08/12/22 23:59 DIRECTED PRN Sterile Water 0 ml 08/12/22 06:00 Water,Injection,Sterile 10 Ml Vial IJ 08/12/22 23:59 DIRECTED PRN PFSH Active Problems Active Problems: Problem Status Onset Code Colon cancer screening Z12.11 Pain, dental K08.89 Chest wall pain R07.89 Medical History Medical History (Updated 08/12/22 @ 10:58 by Michael Corbin MD) Chronic low back pain Left knee pain Surgical History Surgical History History of vasectomy Tobacco Smoking/Tobacco Use Status: Never Alcohol Alcohol Intake: current Alcohol intake frequency: holidays/special occasions only Substance Use Substance use: Never Substance use type: does not use Vital Signs and Lab Results Vital Signs Most Recent Vital Signs in EMR: Most Recent Vital Signs Temp Pulse Resp BP Pulse Ox 36.6 C 59 L 18 109/76 99 08/12/22 12:00 08/12/22 12:00 08/12/22 12:00 08/12/22 12:00 08/12/22 12:00 Lab Results Blood Type / Crossmatch: No Data to Display Complete Blood Count: No Data to Display Complete Metabolic Panel: No Data to Display Liver Function Panel: No Data to Display Coagulation Panel: No Data to Display Cardiac Panel: No Data to Display Arterial Blood Gas: No Data to Display Venous Blood Gas: No Data to Display Pancreas Panel: No Data to Display Thyroid Panel: No Data to Display Infectious Disease: No Data to Display Blood Cultures: No Data to Display Toxicology Panel: No Data to Display Anesthesia Assessment and Plan Anesthesia History Personal History: No History of Anesthesia Complications Family History: No Family History of Anesthesia Complications Exercise Tolerance Exercise Tolerance: Metabolic Equivalents<4 Pertinent Negatives Pertinent Negatives: No Symptoms of GERD Cardiac & Pulmonary Exam Cardiac Exam: Normal S1/S2 Heart Sounds Pulmonary Exam: Clear Bilateral Breath Sounds Implantable Cardiac Device Does patient have a Pacemaker or an ICD?: No Airway Exam Known Difficult Airway: No Mallampati Class: 2 Mouth Opening: Normal (> 3cm) Thyromental Distance: Greater than 3 cm Neck Range of Motion: Full ROM Neck Circumference: Normal Teeth Condition: Normal Dentition ASA Classification ASA Score: ASA 2 Emergency Case?: No NPO Status NPO Status: NPO Clears >2 hours, Solids >8 hours Anesthesia Plan Resuscitation Status: Full Code Anesthesia Technique: General Anesthesia Airway Planned: Natural Airway Monitors Used: Standard Monitors
[2022-08-12] MEDS: Lactated Ringers 1,000 ML 80 ML IV (12:40)
[2022-08-12 13:42] VITALS: BP 108/74; PULSE 68; RESP 16; TEMP 36; O2SAT 94
--- NOTE | 2022-08-12 13:57 | W.ANESPOSTOP ---
Postoperative Evaluation Date, Time and Location Date Performed: 08/12/22 Time Performed: 13:57 Patient Location: Day Surgery Unit Vital Signs Most Recent Imported Vital Signs: Most Recent Vital Signs Temp Pulse Resp BP Pulse Ox 36 C L 68 16 108/74 94 08/12/22 13:42 08/12/22 13:42 08/12/22 13:42 08/12/22 13:42 08/12/22 13:42 Pain Score Most Recent Pain Score: Most Recent Pain Score Pain Level 0 08/12/22 13:42 Assessment Mental Status: Awake (Alert & Oriented to Patient Baseline) Airway and Respiratory Function: Patent airway with normal (patient baseline) respiratory exam Cardiovascular Function: Hemodynamically Stable Hydration Status: Adequately Hydrated Nausea & Vomiting: No Nausea or Vomiting Pain: Pt. Denies Any Pain Peripheral Nerve Block: Patient did not receive a nerve block
[2022-08-12 14:14] VITALS: BP 100/78; PULSE 60; RESP 18; TEMP 36.4; O2SAT 99
== END 2022-08-12 12:00 | disposition home or self-care (01) ==
PROVIDERS: PCP Nurse Practitioner Family; Visit Provider Surgery
PROC: 0DJD8ZZ Inspection of Lower Intestinal Tract, Via Natural or Artificial Opening Endoscopic (ICD-10-PCS; CPT 45378; principal; 2022-08-12 13:00)
DX: Z12.11 Encounter for screening for malignant neoplasm of colon (principal); K64.0 First degree hemorrhoids
CPT/HCPCS: 45378

== ENCOUNTER 2024-03-14 14:40 | Emergency (ER) | payer MEDICAID, SELFPAY ==
[2024-03-14] VITALS (7 sets, daily range): BP systolic 102–116; BP diastolic 72–85; PULSE 67–86; RESP 12–18; TEMP 36.6; O2SAT 94–99
--- NOTE | 2024-03-14 14:30 | RT.EKG_ITS ---
APPROVED REPORT Exam: Resting ECG Reason for Exam: chest pain Patient Location: E HR:80 bpm ECG Measurements Heart Rate 80 AXIS AL 186 P 63 QRSd 94 QRS 9 QT 351 T 42 QTc 405 Conclusion Sinus rhythm...normal P axis, V-rate 60- 99 ST elevation, consider inferior injury...ST >0.08mV, II III aVF
--- NOTE | 2024-03-14 14:45 | DI.RAD_ITS ---
Exam(s) XR CHEST 2V PA LATERAL EXAM: XR CHEST 2V PA LATERAL CLINICAL HISTORY: Chest pain. TECHNIQUE: 2D digital imaging was performed. COMPARISON: CR,XR XR RIBS RT W PA LAT CHEST from 12/06/2021 FINDINGS: 2 views: Heart size is normal. The mediastinum is not widened. Lungs are clear. No infiltrates nor pleural effusions. IMPRESSION: No acute pulmonary findings.No significant change compared to chest x-ray of 12/06/2021. DATA REPOSITORY: RADIATION DOSE DELIVERED:
[2024-03-14 15:14] LABS: Abs Immature Grans 0.02 10^3/uL (0.0-0.06); Absolute Basophil Count 0.05 10^3/uL (0.0-0.2); Absolute Eosinophil Count 0.06 10^3/uL (0.0-0.7); Absolute Lymphocyte Count 1.35 10^3/uL (1.2-3.4); Absolute Monocyte Count 0.52 10^3/uL (0.1-0.8); Absolute Neutrophil Count 4.72 10^3/uL (1.2-6.7); Basophils % 0.7 %; Eosinophils % 0.9 %; HCT 48.3 % (40.0-50.0); HGB 16.2 g/dL (13.5-17.5); Immature Grans % 0.3 %; Lymphocytes % 20.1 %; MCH 30.6 pg (27.0-33.0); MCHC 33.5 % (32.0-36.0); MCV 91 fL (80-95); MPV 10.9 fL (8.0-11.0); Monocytes % 7.7 %; Neutrophils % 70.3 %; Platelet Count 167 10^3/uL (130-400); RBC 5.29 10^6/uL (4.36-5.78); RDW 12.1 % (11.8-14.1); RDW-SD 40.5 fL; WBC 6.72 10^3/uL (4.4-10.8)
[2024-03-14] MEDS: Aspirin 81 MG CHEW 324 MG CH (15:21)
[2024-03-14 15:50] LABS: ALT 57 U/L (16-63); AST 43 U/L (15-37); Albumin 4.4 g/dL (3.4-5.0); Alkaline Phosphatase 96 U/L (46-116); Anion Gap 8.9 mmol/L (3-11); BUN 14 mg/dL (7-18); Bilirubin, Total 0.61 mg/dL (0.2-1.0); CO2 30.1 mmol/L (21.0-32.0); CREATININE 1.2 mg/dL (0.70-1.30); Calcium 9.4 mg/dL (8.5-10.1); Chloride 104 mmol/L (98-107); Estimated GFR 73.67 (mL/min/1.73m2); Glucose 90 mg/dL (74-106); Magnesium 1.9 mg/dL (1.8-2.4); Potassium 4.3 mmol/L (3.5-5.1); Sodium 143 mmol/L (136-145); Total Protein 7.8 g/dL (6.4-8.2); Troponin I 11 ng/L (<or=76)
--- NOTE | 2024-03-14 15:53 | ED.GENADUL_ITS ---
Discharge Plan Discharge Details Chief Complaint: Chest Pain Primary Care Provider: Unknown,Unknown ED Provider: Camryn Beckman Home Meds and New Rx's Prescriptions: No Action ibuprofen 800 mg Tablet 800 mg PO Q8H acetaminophen [Acetaminophen Extra Strength] 500 mg Tablet 100 mg PO QID PRN HPI General Date/Time Provider Initiated Documentation: 03/14/24 14:41 . Limitations to Documentation: no limitations . Information obtained by: patient and RN notes reviewed . History of Present Illness 48 year old M presents to the emergency department with the chief complaint of chest pain, described as moderate, Quality is described as other (tightness), Patient reports no radiation. Patient started experiencing this minute(s) and it has been now resolved. Immobilization improves symptom(s), Movement worsens symptoms (playing basketball) . Patient notes chest pain; denies confusion, cough, fever/chills, headaches, nausea/vomiting, rash and shortness of breath. Patient did receive the following treatments prior to arrival, none Related Data Home Medications ?Medication ?Instructions ?Recorded ?Confirmed acetaminophen 500 mg tablet 100 mg PO QID PRN 12/06/21 03/14/24 (Acetaminophen Extra Strength) ibuprofen 800 mg tablet 800 mg PO Q8H 12/06/21 03/14/24 Allergies Allergy/AdvReac Type Severity Reaction Status Date / Time No Known Allergies Allergy Verified 03/14/24 14:49 General Stated Complaint: Chest Pain ADIA: 2 Review of Systems Constitutional Constitutional: Reports as per HPI, Denies fever(s) and Denies headache(s) Eyes Eyes: Denies change in vision ENT Ears, Nose, Mouth, and Throat: Denies headache(s) Cardiovascular Cardiovascular: Reports as per HPI, Denies dyspnea and Denies dyspnea on exertion Respiratory Respiratory: Reports as per HPI, Denies chest congestion, Denies cough, Denies pain on inspiration, Denies pain with cough, Denies dyspnea and Denies dyspnea on exertion Gastrointestinal Gastrointestinal: Reports as per HPI, Denies abdominal pain, Denies diarrhea, Denies nausea and Denies vomiting Musculoskeletal Musculoskeletal: Reports as per HPI and Denies back pain Integumentary/Breasts Skin/Breast: Reports as per HPI and Denies rash Neurologic Neurologic: Reports as per HPI and Denies headache(s) Exam Const General: cooperative, healthy appearing, comfortable, no acute distress and well developed Nutritional Appearance: well nourished and overweight Orientation: alert, awake and oriented x3 Chest Chest: normal inspection of the chest, normal palpation of entire chest wall and no crepitus Resp Effort & Inspection: normal respiratory effort, able to speak in complete sentences and no respiratory distress Auscultation: clear to auscultation bilaterally, no rales, no rhonchi and no wheezes Cardio Rate: regular rate Rhythm: regular rhythm Heart Sounds: S1 normal and S2 normal Skin General skin exam: no rashes or lesions noted Trauma: no lacerations or abrasions Neuro General: patient alert, patient awake and patient oriented x3 Cognition: normal cognition Speech: speech normal Gait: normal gait Extrem General: normal to inspection, capillary refill normal, no pedal edema, no calf tenderness and normal gait Course Vital Signs Vital signs: Vital Signs Temperature 36.6 C 03/14/24 14:43 Pulse 80 03/14/24 14:43 Respiratory Rate 18 03/14/24 14:43 Blood Pressure 108/75 03/14/24 14:43 Pulse Oximetry 98 03/14/24 14:43 Temperature 36.6 C 03/14/24 14:43 Pulse 77 03/14/24 15:48 Respiratory Rate 16 03/14/24 15:23 Respiratory Effort Normal 03/14/24 15:22 Respiratory Depth Normal 03/14/24 15:22 Blood Pressure 105/72 03/14/24 15:48 Blood Pressure Mean 83 03/14/24 15:48 Blood Pressure Position Sitting 03/14/24 15:48 Pulse Oximetry 97 03/14/24 15:48 Oxygen Delivery Method Room Air 03/14/24 14:43 Oxygen Flow Rate 0 03/14/24 14:43 Pain Level 2 03/14/24 15:22 Lab/Test Results Lab/Test Results: Laboratory Tests Range/Units 03/14/24 15:10 WBC (4.4-10.8) 10^3/uL 6.72 RBC (4.36-5.78) 10^6/uL 5.29 Hgb (13.5-17.5) g/dL 16.2 Hct (40.0-50.0) % 48.3 MCV (80-95) fL 91 MCH (27.0-33.0) pg 30.6 MCHC (32.0-36.0) % 33.5 RDW (11.8-14.1) % 12.1 Plt Count (130-400) 10^3/uL 167 MPV (8.0-11.0) fL 10.9 Immature Gran % % 0.3 Neutrophils % % 70.3 Lymphocytes % % 20.1 Monocytes % % 7.7 Eosinophils % % 0.9 Basophils % % 0.7 Nucleated RBC % (0.0-0.3) % 0.0 Absolute Neutrophils (1.2-6.7) 10^3/uL 4.72 Absolute Lymphocytes (1.2-3.4) 10^3/uL 1.35 Absolute Monocytes (0.1-0.8) 10^3/uL 0.52 Absolute Eosinophils (0.0-0.7) 10^3/uL 0.06 Absolute Basophils (0.0-0.2) 10^3/uL 0.05 Sodium (136-145) mmol/L 143 Potassium (3.5-5.1) mmol/L 4.3 Chloride (98-107) mmol/L 104 Carbon Dioxide (21.0-32.0) mmol/L 30.1 Anion Gap (3-11) mmol/L 8.9 BUN (7-18) mg/dL 14 Creatinine (0.70-1.30) mg/dL 1.2 Est GFR (CKD-EPI 2020) (mL/min/1.73m2) 73.67 Glucose (74-106) mg/dL 90 Calcium (8.5-10.1) mg/dL 9.4 Magnesium (1.8-2.4) mg/dL 1.9 Total Bilirubin (0.2-1.0) mg/dL 0.61 AST (15-37) U/L 43 H ALT (16-63) U/L 57 Alkaline Phosphatase (46-116) U/L 96 Troponin I (<or=76) ng/L 11 Total Protein (6.4-8.2) g/dL 7.8 Albumin (3.4-5.0) g/dL 4.4 Medical Decision Making Patient is a pleasant 48-year-old male presenting today with chief complaint of chest pain. He reports that this began while he was active and playing basketball. Lasted a few minutes and is resolved with rest. States that he felt like a tightness in his chest and indicates substernal and just the left side of the sternum as area of discomfort. States the pain has now resolved, 1 weight with sitting down. While having the discomfort, he reports that he did have some dizziness associated with this, no syncope. Denies any trauma to the chest. No pain like this historically. He denies any personal familial history of heart disease. He denies any palpitations. No nausea or vomiting. No recent change in medications. No recent change in diet. On exam, patient appears slightly anxious but otherwise nontoxic. Normal cardiac exam. Hemodynamically stable. No lower extremity edema. 2+ distal pulses in all extremities. No murmurs rubs or gallops appreciated. Lungs are clear. ECG reviewed by emergency department attending, no elevation of ST segments. Initial computer reviewed did show concern for possible inferior PA but this appears to been an over read and was confirmed to be inaccurate. No acute ischemic changes. Patient given aspirin. Labs are pending. CBC without abnormality. CMP showed no electrolyte abnormality. Normal kidney function. AST slightly elevated 43 which appears baseline for the patient. Initial troponin 11, will plan to obtain delta troponin. At the end of my shift, care transitioned to oncoming provider with delta troponin pending as well as x-ray. This documentation was generated using [employer] dictation system, please disregard any oddities of phrase or misspellings. Quality:SDOH Health Related Social Needs: No Data to Display PFSH All Active Problems (Updated 08/16/22 @ 00:05 by GIRMA LEWIS) Colon cancer screening (Acute) Chest wall pain (Acute) Medical History (Updated 08/16/22 @ 00:05 by GIRMA LEWIS) Chronic low back pain Left knee pain Surgical History History of vasectomy Family History (Updated 08/10/22 @ 08:42 by MADELINE Medina) Paternal Grandfather Colon cancer Social History Smoking/Tobacco Use Status: Never Smoking risk assessment performed?: Yes Alcohol Intake: current Alcohol Intake frequency: holidays/special occasions only Drug use: Never Substance use type: does not use Housing: house Current gender identity: male Do you feel safe at home: Yes Do you feel safe in your relationship?: Yes
--- NOTE | 2024-03-14 16:55 | ED.PROG_ITS ---
Date of service: 03/14/24 Time of Service: 16:55 Medical Decision Making This dictation utilizes [id number] dictation software and may contain unedited grammatical errors. Patient seen in signout from Camryn gann PA-C, please see her complete note, essentially this 48-year-old male without cardiac history and no major medical conditions presents with 5 to 10 minutes of chest pain while playing basketball that resolved with rest, he has primary care, his heart score is low based on initial troponin and he is pending further delta troponin testing as well as chest x-ray. Patients' medical history: Chest wall pain, chronic low back pain. Family and social history: [ ]. Pertinent exam findings / vital signs include (see Camryn Beckman PA-C's note, no clinical deterioration from baseline exam during ED stay). Differential / pathologies of concern include ACS, pneumonia, spontaneous pneumothorax, costochondritis. Diagnostic studies of: -CBC, CMP, serial troponins x 3, magnesium, EKG, XR chest. -CBC and CMP are benign -Serial troponins negative and stable -Magnesium within normal limits -XR chest no acute pathology -Sinus rhythm, 80 bpm, P waves followed by narrow complex QRS with normal axis, no ST elevation, no reciprocal depressions, normal intervals Interventions of: -Given 324mg CH ASA prior to sign-out. ED Course/Assessment/Plan: 48-year-old man had a brief episode of chest pain while playing basketball, over the bed and pain initiated by prior provider with initial troponin negative, heart score is low and he has no history himself or no major comorbidities. His cardiac workup is negative XR chest shows no acute abnormality I discussed low risk with him, he has an upcoming primary care physical I discussed that he needs to get a referral to cardiology for baseline cardiology studies with strict return criteria for any emergent concerns. Findings not consistent with ACS, demand ischemia, arrhythmia, dissection. Disposition of chest pain of uncertain etiology. Patient verbalized understanding of the plan and return to ED criteria and engaged in shared decision making. Medical Records Medical records reviewed: Yes I reviewed the patient's medical records. Imaging Data Radiologic Study: Attestation: I personally reviewed and interpreted this imaging study as follows: Imaging: X-Ray Radiologist's impression: EXAM: XR CHEST 2V PA LATERAL CLINICAL HISTORY: Chest pain. TECHNIQUE: 2D digital imaging was performed. COMPARISON: CR,XR XR RIBS RT W PA LAT CHEST from 12/06/2021 FINDINGS: 2 views: Heart size is normal. The mediastinum is not widened. Lungs are clear. No infiltrates nor pleural effusions. IMPRESSION: No acute pulmonary findings.No significant change compared to chest x-ray of 12/06/2021. Lab Data Lab results reviewed: Yes I reviewed the patient's lab results. Labs: Laboratory Tests Range/Units 03/14/24 03/14/24 03/14/24 15:10 16:15 18:17 WBC (4.4-10.8) 10^3/uL 6.72 RBC (4.36-5.78) 10^6/uL 5.29 Hgb (13.5-17.5) g/dL 16.2 Hct (40.0-50.0) % 48.3 MCV (80-95) fL 91 MCH (27.0-33.0) pg 30.6 MCHC (32.0-36.0) % 33.5 RDW (11.8-14.1) % 12.1 Plt Count (130-400) 10^3/uL 167 MPV (8.0-11.0) fL 10.9 Immature Gran % % 0.3 Neutrophils % % 70.3 Lymphocytes % % 20.1 Monocytes % % 7.7 Eosinophils % % 0.9 Basophils % % 0.7 Nucleated RBC % (0.0-0.3) % 0.0 Absolute Neutrophils (1.2-6.7) 10^3/uL 4.72 Absolute Lymphocytes (1.2-3.4) 10^3/uL 1.35 Absolute Monocytes (0.1-0.8) 10^3/uL 0.52 Absolute Eosinophils (0.0-0.7) 10^3/uL 0.06 Absolute Basophils (0.0-0.2) 10^3/uL 0.05 Sodium (136-145) mmol/L 143 Potassium (3.5-5.1) mmol/L 4.3 Chloride (98-107) mmol/L 104 Carbon Dioxide (21.0-32.0) mmol/L 30.1 Anion Gap (3-11) mmol/L 8.9 BUN (7-18) mg/dL 14 Creatinine (0.70-1.30) mg/dL 1.2 Est GFR (CKD-EPI 2020) (mL/min/1.73m2) 73.67 Glucose (74-106) mg/dL 90 Calcium (8.5-10.1) mg/dL 9.4 Magnesium (1.8-2.4) mg/dL 1.9 Total Bilirubin (0.2-1.0) mg/dL 0.61 AST (15-37) U/L 43 H ALT (16-63) U/L 57 Alkaline Phosphatase (46-116) U/L 96 Troponin I (<or=76) ng/L 11 14 12 Total Protein (6.4-8.2) g/dL 7.8 Albumin (3.4-5.0) g/dL 4.4 Quality:SDOH Health Related Social Needs: No Data to Display Discharge Plan Disposition Patient Disposition: Home Condition: Stable Discharge Details Clinical Impression: Chest pain of uncertain etiology Primary Care Provider: Unknown,Unknown ED Provider: Bharat Pettit Home Meds and New Rx's Prescriptions: Continued ibuprofen 800 mg Tablet 800 mg PO Q8H acetaminophen [Acetaminophen Extra Strength] 500 mg Tablet 100 mg PO QID PRN Discharge Instructions Instructions: Chest Pain, Adult ED Additional Instructions: You were seen in the emergency department for your chest pain while playing basketball, this may be musculoskeletal in nature, your cardiac workup is negative, you do have some risk factors but your overall risk score is low, this makes it reasonable that you follow-up with your primary care provider and get a referral to a cone classifier tender for some baseline studies like a stress test and echocardiogram in the next 90 days. Please return to the emergency department immediately for any sudden onset chest pain, shortness of breath, near syncope, fainting, or any other emergent concerns. Referrals: [facility] [Provider Group] [facility] [Provider Group] [facility] [Provider Group]
[2024-03-14 17:26] LABS: Troponin I 14 ng/L (<or=76)
[2024-03-14 18:47] LABS: Troponin I 12 ng/L (<or=76)
== END 2024-03-14 19:07 | disposition home or self-care (01) ==
PROVIDERS: Physician Assistant; Emergency Provider Physician Assistant
DX: R07.9 Chest pain, unspecified (principal); R06.02 Shortness of breath; Z79.82 Long term (current) use of aspirin
CPT/HCPCS: 00123; 80053; 93005; 99285; 71046; 83735; 84484; 85025; 93010; 99284

== ENCOUNTER 2024-04-10 15:44 | Outpatient (REF) | payer MEDICAID, SELFPAY ==
[2024-04-10 19:56] LABS: ALT 63 U/L (16-63); AST 35 U/L (15-37); Albumin 4.1 g/dL (3.4-5.0); Alkaline Phosphatase 93 U/L (46-116); BUN 14 mg/dL (7-18); Bilirubin, Total 0.39 mg/dL (0.2-1.0); CREATININE 1.2 mg/dL (0.70-1.30); Chloride 108 mmol/L (98-107); Estimated GFR 73.67 (mL/min/1.73m2); GGT 78 U/L (15-85); Glucose 101 mg/dL (74-106); Sodium 146 mmol/L (136-145); Total Protein 6.7 g/dL (6.4-8.2)
[2024-04-10 20:11] LABS: Hemoglobin A1C 5.3 % (<5.7)
[2024-04-11 22:02] LABS: Hepatitis C Ab w Rflx HCV PCR Negative (Negative)
== END 2024-04-10 15:45 | disposition home or self-care (01) ==
LOC: NCHCN 15:44
PROVIDERS: Visit Provider Nurse Practitioner Family
DX: Z68.29 Body mass index [BMI] 29.0-29.9, adult (principal); E66.9 Obesity, unspecified; R74.8 Abnormal levels of other serum enzymes; Z00.00 Encounter for general adult medical examination without abnormal findings
CPT/HCPCS: 80053; 86803; 82977; 83036

== ENCOUNTER 2024-10-15 17:02 | Outpatient (REF) | payer MEDICAID, SELFPAY ==
[2024-10-15 19:48] LABS: Calculated LDL 71 mg/dL (<100); Cholesterol 160 mg/dL (<200); HDL Cholesterol 46 mg/dL (>or=40); Triglyceride 217 mg/dL (<150)
== END 2024-10-15 17:03 | disposition home or self-care (01) ==
LOC: NCHCN 17:02
PROVIDERS: PCP Nurse Practitioner Family; Visit Provider Nurse Practitioner Family
DX: E78.5 Hyperlipidemia, unspecified (principal)
CPT/HCPCS: 80061

== ENCOUNTER 2024-10-25 00:17 | Outpatient (CLI) | payer MEDICAID, SELFPAY ==
--- NOTE | 2024-10-25 | ETT_ITS ---
APPROVED REPORT Exam: Exercise Treadmill Patient Location: Out-Patient Room/Bed: Stress Nurse: Beatrice Pina RN Ordering Provider:JOHN MOORE, Contact Number: [phone] BMI: 32.04 Baseline Rhythm: Sinus Rhythm. Indications: Chest Pain/Tightness. Medical History Medical History: HLD; Elevated LFT's; Decreased Stamina. Cardiac Medications: None. Allergies: None. Cardiac Risk Factors: HLD. Previous Cardiac Procedures: None. Pretest Chest Pain Characteristics: None. Exercise History: Physically active. Physical Disabilities: None. Lung Sounds: Clear bilaterally throughout, anterior and posterior. Heart Sounds: S1 and S2 auscultated. Stress Test Details Test: Exercise stress testing was performed using a Lorenzo protocol. Rest Stress HR Resting HR Supine: 68 bpm Max Heart Rate (APMHR): 169 bpm Resting HR Standin bpm Target HR (85% APMHR): 144 bpm Max HR Achieved: 146 bpm % of APMHR: 86 Recovery HR: 90 bpm HR response to stress: Normal HR response to stress. BP Resting BP Supine: 102/70 mmHg Resting BP Standin/64 mmHg Max BP: 130/76 mmHg Recovery BP: 110/68 mmHg BP response to stress: Normal blood pressure response to stress. ECG Resting ECG: Sinus Rhythm. Ectopy: None. Stress ECG: Sinus Tachycardia. ST Change: No significant ST segment changes noted. Arrhythmia: None. Recovery ECG: Sinus Rhythm. Recovery ST Change: No significant ST segment changes noted. Recovery Arrhythmia: None. Clinical Reason for Termination: Target HR Achieved; Bilateral James Pain. Stress Symptoms: Bilateral James Pain. Exercise duration: 10 min30 sec Highest Stage Reached: Stage 4: 4.2 mph at 16% grade. Exercise capacity: 12.63 METs Angina Score: None Mccall Treadmill Score: 10.3 Rate Pressure Product: 33436 Stress ECG Conclusion 1. Resting electrocardiogram was normal 2. Patient exercised on the Lorenzo protocol and completed workload of 12.6 METS 3. Normal heart rate and blood pressure response to exercise. The patient achieved 86% of maximal predicted heart rate for age 4. There was no electrocardiographic evidence of myocardial ischemia 5. There were no significant dysrhythmias Mccall Treadmill Score is 10.3 which is Low risk. Stress Test Summary STAGE Time (mins) Speed (mph) Grade (%) HR BP SpO2 SYMPTOMS METS Supine 68 102/70 96 Standing 69 100/64 96 1 3 1.7 10 103 97 4.5 2 6 2.5 12 122 120/60 96 7 3 9 3.4 14 129 130/76 97 10 4 12 4.2 16 146 98 Pt. c/o bilateral james pain. 13 1 min recovery 118 130/50 98 3 min recovery 84 120/64 98 6 min recovery 90 110/68 95 Pt. states that bilateral james pain has resolved. Pt. performed an ETT stress test. Pt. c/o bilateral james pain, stating that he had been helping a friend move yesterday and was feeling sore from that, which resolved prior to pt. leaving the Stress Lab. Stress test was stopped due to pt. achieving a heart rate higher than the target heart rate, pt. experiencing bilateral james pain, and pt. request to stop the stress test. Pt. was conversing pleasantly with nursing staff upon leaving the Stress Lab and left ambulatory in no apparent distress.
== END 2024-10-25 00:37 ==
LOC: DI 00:17
PROVIDERS: PCP Nurse Practitioner Family; Visit Provider Internal Medicine Cardiovascular Disease
DX: R07.89 Other chest pain (principal)
CPT/HCPCS: 93017